=== PATIENT | male | born 1930 | race Caucasian/White ===

== ENCOUNTER 2017-01-10 14:24 | Emergency (ER) | payer MEDICARE, OTHER ==
[~2017-01-10] VITALS: Ht 182.9 cm; Wt 77.3 kg
[~2017-01-10 14:24] MED LIST: CHOL400C9 PO; FENO160T14 PO; METF500T4 PO; PANT40TA2 PO; SITA100T12 PO; TAMS0.4C29 PO; VALS80TA2 PO
[2017-01-10 14:33] VITALS: BP 146/70; PULSE 86; RESP 23; O2SAT 98
[2017-01-10 15:00] VITALS: BP 141/68; PULSE 83; RESP 21; O2SAT 97
[2017-01-10 15:00] LABS: BASOPHILS % (AUTO) 0.5 % (0-3); EOSINOPHILS % (AUTO) 1.1 % (0-5); MONOCYTES % (AUTO) 8.3 % (4-12); Mean Corpuscular Hemoglobin 27.8 pg (27.0-35.0); Mean Corpuscular Volume 83.3 fL (81-100); NEUTROPHILS % (AUTO) 71.2 % (40-74); Platelet Count 212 bil/L (150-400)
[2017-01-10 15:33] LABS: TROPONIN T < 0.010 ug/L (0.0-0.011)
--- NOTE | 2017-01-10 15:55 | ED.REPORT ---
HPI-General Illness Date of Service Jan 10, 2017 ED Provider: Flaco Nguyen MD This is an 86-year-old male with past medical history of type II diabetes and stroke 13 years ago who presents to the ED with chief complaint of feeling unsteady on his feet. This has been going on for the last couple of days, and he feels like he is about to fall while walking with his cane. He does note that this unsteadiness is worse when he gets up from a sitting position. He also mentions that he is having leg weakness bilaterally. He mentions he did fall 8 days ago after tripping on the curb but relates that his presenting symptoms was not the reason for this. At that time he has had an left rib cage and had a head CT done which did not show any acute intracranial abnormalities. Also notes that he is having some ankle swelling and relates he has been having some salty foods. He mentions he did use magnesium citrate for constipation last week and had several episodes of diarrhea. He also notes that he has had this chronic cough for a few months which is very mild. Denies chest pain, shortness of breath, headache, abdominal pain, nausea and vomiting, and fevers and chills. Nursing Notes Stated Complaint: WEAKNESS Chief Complaint: General Complaint Nursing Notes Reviewed: Yes Allergies: Coded Allergies: No Known Allergies (Verified , 03/06/14) Scheduled Azithromycin (Zithromax (Z-Perfecto)) 250 Mg Tablet 250 MG PO DIRECTED Take two tablets by mouth on day 1, then take one tablet daily on days 2 through 5. Cholecalciferol (Vitamin D3) (Vitamin D3) 400 Unit Capsule 400 UNIT PO QAM Fenofibrate (Fenofibrate) 160 Mg Tablet 160 MG PO NOON Metformin (Metformin) 500 Mg Tablet 2 TAB PO NOON Metformin (Metformin) 500 Mg Tablet 2 TAB PO QPM Pantoprazole DR (Protonix) 40 Mg Tablet 40 MG PO BIDAC Sitagliptin Phos (Januvia) 100 Mg Tablet 100 MG PO QAM Tamsulosin ER (Tamsulosin ER) 0.4 Mg Cap.er.24h 0.4 MG PO QPM Valsartan (Diovan) 80 Mg Tablet 80 MG PO QAM General Time Seen by MD: 15:54 Chief Complaint Other (Gait Instability) Hx Obtained From: Patient Past Medical History Past Medical History Diabetes type II, stroke Past Surgical History Inguinal Hernia Repair Smoking History Never Smoker Social History Alcohol Use: Denies alcohol use Drug Use: Denies drug use Review of Systems Full Review of Systems Constitutional: Denies: Chills, Fatigue, Fever, Weakness - generalized Respiratory: Reports: Prod cough, white Cardiovascular: Denies: Chest pain, Palpitations GI: Reports: Constipation, Denies: Abdominal pain Male: Denies Dysuria, Denies Flank pain Musculoskeletal: Reports: Extremity swelling, Denies: Extremity pain Neurologic: Reports: Problem walking, Denies: Bladder dysfunction, Bowel dysfunction, Headache, Spinning sensation , Syncope Complete sys rev & neg: except as marked. Physical Exam Vital Signs Vital Signs Date Time Temp Pulse Resp B/P Pulse Ox O2 Delivery O2 Flow Rate FiO2 01/10/17 16:39 77 135/70 96 Room Air 01/10/17 16:38 74 140/48 98 Room Air 01/10/17 16:37 72 142/68 100 Room Air 01/10/17 14:33 36.4 86 23 146/70 98 Room Air Initial VS: Reviewed General/Constitutional: Well-developed, Well-nourished Head / Eyes: PERRL Neck: Supple, Non-tender, Full range of motion Respiratory: Breath sounds normal, Clear to auscultation, No respiratory distress Cardiovascular: Regular rate & rhythm Abdomen / GI: Soft, Non-tender, No guarding, No rebound, No distention Back: No CVA tenderness Extremities: Neuro intact Periph CV / BP Differential: Positive: Peripheral pulses weak Upper Ext Edema: Positive: Bilateral 1+ Neurologic: Oriented X3, Speech NL, No motor deficits, No sensory deficits, CN II - XII intact Interpretation & Diagnostics Lab Results Interpretation Result Diagram: 01/10/17 1450 01/10/17 1450 Test 01/10/17 14:50 01/10/17 18:19 White Blood Count 5.6th/mm3 (3.8-10.1) Red Blood Count 4.14mil/mm3 (4.40-5.80) Hemoglobin 11.5g/dL (13.8-17.2) Hematocrit 34.5% (41.0-50.0) Mean Corpuscular Volume 83.3fL (81-100) Mean Corpuscular Hemoglobin 27.8pg (27.0-35.0) Mean Corpuscular Hemoglobin Concent 33.3% (32.0-37.0) Red Cell Distribution Width 14.5% (12.3-15.4) Platelet Count 212bil/L (150-400) Neutrophils (%) (Auto) 71.2% (40-74) Lymphocytes (%) (Auto) 18.7% (14-46) Monocytes (%) (Auto) 8.3% (4-12) Eosinophils (%) (Auto) 1.1% (0-5) Basophils (%) (Auto) 0.5% (0-3) Sodium Level 132mEq/L (134-144) Potassium Level 4.3mEq/L (3.5-5.2) Chloride Level 96mEq/L (97-108) Carbon Dioxide Level 21mmol/L (18-29) Blood Urea Nitrogen 18mg/dL (8-27) Creatinine 1.09mg/dL (0.76-1.27) Estimat Glomerular Filtration Rate 68mL/min (>59) Glucose Level 155mg/dL (60-99) Calcium Level 9.0mg/dL (8.5-10.1) Total Bilirubin 0.2mg/dL (0.0-1.2) Aspartate Amino Transf (AST/SGOT) 17U/L (0-50) Alanine Aminotransferase (ALT/SGPT) 11U/L (0-44) Alkaline Phosphatase 54U/L (25-160) Troponin T < 0.010ug/L (0.0-0.011) Total Protein 7.0g/dL (6.4-8.4) Albumin 3.8g/dL (3.4-5.0) Hold Andres Top Tube Received (Received) Urine Color Straw (YELLOW) Urine Appearance Clear (CLEAR,HAZY) Urine pH 6.5 (5.0-8.0) Urine Specific [place] 1.010 (1.003-1.035) Urine Protein Negativemg/dL (NEG,TRACE) Urine Glucose (UA) Negativemg/dL (NEGATIVE) Urine Ketones Negativemg/dL (NEGATIVE) Urine Occult Blood Negative (NEGATIVE) Urine Nitrite Negative (NEGATIVE) Urine Bilirubin Negative (NEGATIVE) Urine Urobilinogen Normalmg/dL (NORMAL) Urine Leukocyte Esterase Negative (NEGATIVE) Urine RBC 0-2/hpf (0-2) Urine WBC 0-5/hpf (0-5) Urine Epithelial Cells Few/hpf (NONE-MOD) Urine Crystals None seen (NONE SEEN) Urine Bacteria None/hpf (NONE-FEW) Urine Hyaline Casts None/lpf (NONE) Urine Granular Casts None seen (NONE SEEN) Urine Waxy Casts None seen (NONE SEEN) Urine Red Blood Cell Casts None seen (NONE SEEN) Urine White Blood Cell Casts None seen (NONE SEEN) Urine Mucus None seen (None Seen) Urine Trichomonas None seen (NONE SEEN) Urine Yeast None (NONE SEEN) Urinalysis Comment None Urine Culture Reflexed Not indicated Re-Eval/Medical Decision Med Decision/Clinical Course This is an 86-year-old male with past medical history of type II diabetes and stroke 13 years ago who presents for unsteady gait. Since been going on for the last couple days and he has noticed increased swelling in his legs as well. Differential included stroke and orthostatic hypotension. Patient notices exacerbation of symptoms upon standing. On physical exam patient had mild pitting edema in both lower extremities. Otherwise, neuro exam was unremarkable. CBC showed hemoglobin of 11.5, and CMP showed sodium of 132. CT head showed no acute intracranial abnormalities. Chest x-ray showed left basilar airspace disease with possible developing pneumonia. IV Lasix was given to help with his leg edema. Azithromycin was sent to his pharmacy for possible developing pneumonia. Discharge & Departure Primary Impression: Bilateral swelling of feet Additional Impression: Pneumonia Disposition: Home Discharge Condition All VS Reviewed: Yes Condition: Stable Patient Instructions: Leg Edema (ED) Additional Instructions: Follow-up with your primary care physician and/or customer liaison within 1 week. Referrals: Ernst Patel MD (PCP) EDSupervising Provider for APC: Flaco Nguyen MD Attending Statement I discussed patient with resident Heidi. I evaluated patient independently and agree with plan as above. In brief, 86-year-old male history of CHF presenting complaining of cough times several weeks and bilateral lower extremity swelling that is chronic but possibly worse today. His chest x-ray shows possible developing left pulmonary infiltrate. His labs are stable. His oxygen is stable. He has no lower extremity edema. He will be treated with azithromycin for possible developing pneumonia. He was given 1 dose of Lasix for symptomatic treatment of his lower extremity swelling which she has been taking chronically. There is no unilateral swelling or even any swelling to suggest DVT. He will follow-up with his primary doctor. copies to: Ernst Patel MD, Ben M MD Jan 10, 2017 15:55 Omi Caraballo DO Jan 10, 2017 16:27
--- NOTE | 2017-01-10 16:28 | DRSVH ---
PROCEDURE: X-RAY CHEST ONE VIEW, PORTABLE ([id number]) INDICATIONS: weak TECHNIQUE: One view of the chest was acquired. COMPARISON: [facility], CR, XR [facility] CXR MIN 3VW LT, 01/05/2017, 11:09. FINDINGS: Surgical changes and devices: None. Lungs and pleura: Salter space disease at the left lung base is noted. No lobar consolidation, large effusion, or pneumothorax is evident. Mediastinum: Mediastinal contours appear normal. Heart size is normal. There is aortic atheroscler osis. Bones and chest wall: No suspicious bony lesions. Overlying soft tissues appear unremarkable. IMPRESSION: Left basilar airspace disease may represent a developing pneumonia. Please correlate cli nically. Dictated by: Gil He M.D. on 01/10/2017 at 14:21 Approved by: Gil He M.D. on 01/10/2017 at 14:34
--- NOTE | 2017-01-10 16:30 | DRSVH ---
PROCEDURE: CT BRAIN WITHOUT CONTRAST ([id number]) INDICATIONS: weakness TECHNIQUE: Noncontrast 4.5 mm thick angled axial sections acquired from the foramen magnum to the vertex, with c oronal reformats. COMPARISON: [facility], CT, CT BRAIN WO CON, 01/05/2017, 13:09. FINDINGS: Image quality: Excellent. CSF spaces: Basal cisterns are patent. No extra-axial fluid collections. The ventricles are symmet alli in size and shape. Brain: No intracranial bleeds or masses. Chronic left cerebellar infarct. There is cerebral volume loss for age, with resultant ventricular and sulcal prominence. There are periventricular and deep w carline matter chronic small vessel ischemic changes. There is intracranial internal carotid artery ath erosclerosis. Skull and face: Calvarium and visualized facial bones appear intact, without suspicious lesions. Sinuses: Visualized sinuses and mastoids are clear. IMPRESSION: No acute intracranial abnormality. Chronic left cerebellar infarct. Dictated by: Richie Lerma M.D. on 01/10/2017 at 16:27 Approved by: Richie Lerma M.D. on 01/10/2017 at 16:28
[2017-01-10 16:37] VITALS: BP 142/68; PULSE 72; O2SAT 100
[2017-01-10 16:38] VITALS: BP 140/48; PULSE 74; O2SAT 98
[2017-01-10 16:39] VITALS: BP 135/70; PULSE 77; O2SAT 96
[2017-01-10] MEDS ORDERED: Furosemide 10 mg/mL 4 mL Inj IVPUSH ONE (17:20)
[2017-01-10] MEDS ORDERED: AZIT250T4 PO (17:49)
[2017-01-10 18:43] LABS: APPEARANCE,URINE CLEAR (CLEAR,HAZY); COLOR,URINE STRAW (YELLOW); OCCULT BLOOD,URINE NEGATIVE (NEGATIVE); PH,URINE 6.5 (5.0-8.0); UROBILINOGEN,URINE NORMAL (NORMAL)
[2017-01-10 18:47] VITALS: BP 142/70; PULSE 76; RESP 20; O2SAT 96
== END 2017-01-10 18:43 | disposition home or self-care (01) ==
LOC: EDUNIT# 14:24 → EDBD 14:24 → SED 14:24
DX: J18.9 Pneumonia, unspecified organism (principal); M79.89 Other specified soft tissue disorders; E11.9 Type 2 diabetes mellitus without complications; Z86.73 Personal history of transient ischemic attack (TIA), and cerebral infarction without residual deficits; Z79.84 Long term (current) use of oral hypoglycemic drugs
CPT/HCPCS: 36415; 70450; 71010; 80053; 81000; 84484; 85025; 93005; 96374; 99285; J1940